=== PATIENT | female | born 1980 | race Caucasian/White ===

== ENCOUNTER 2016-12-31 18:35 | Observation (INO) | payer MEDICAID ==
[~2016-12-31] VITALS: Ht 172.7 cm; Wt 68.0 kg
[~2016-12-31 18:35] MED LIST: IBUP600 PO; PRENCAP6 PO
[2016-12-31 18:39] VITALS: BP 132/88; PULSE 68; RESP 20; TEMP 97.9; O2SAT 100
--- NOTE | 2016-12-31 19:32 | RADRPT ---
EXAM DATE/TIME: 12/31/2016 19:15 [facility] COMPARISON: No previous studies available for comparison. INDICATIONS : Chest pain. MEDICAL HISTORY : Pericardial effusion. SURGICAL HISTORY : None. ENCOUNTER: Initial ACUITY: 1 day PAIN SCORE: 5/10 LOCATION: chest FINDINGS: A single view of the chest demonstrates questionable right basilar density. Lungs otherwise clear. Th e cardiomediastinal contours are unremarkable. Osseous structures are intact. Scoliotic changes are seen. CONCLUSION: 1. Questionable right basilar density that may be related to rotation/scoliotic changes. Recommend PA and lateral views for further evaluation. Sergo Clayton MD on December 31, 2016 at 19:30 Board Certified Radiologist. This report was verified electronically.
--- NOTE | 2016-12-31 19:37 | PD ---
HPI Chief Complaint: Chest Pain Time Seen by Provider: 19:37 Travel History International Travel<30 days: No Contact w/Intl Traveler<30days: No Traveled to known affect area: No History of Present Illness HPI 36-year-old female presents to the emergency department for evaluation of intermittent chest pain that started today after she lost her doctor's office. She states she is currently being treated for a sinus infection with Augmentin. She saw her primary care doctor today, Dr. Nj, after a CT scan of the abdomen/pelvis was completed. She was instructed that she has a 10 mm thick pericardial effusion. She states this caused her to become anxious that she's been having intermittent chest pain every time she thinks about it. She states the pain is midsternal. She denies any pain at this time. She states that today, she received a injection of Rocephin and was told to stop her Augmentin and start ciprofloxacin. She is also given a prescription for ibuprofen. She has not yet changed her antibiotic. Patient denies any shortness of breath. She denies any history of IVDU. Patient denies any other medical problems or complaints at this time. PFSH Past Medical History ?: Not LMP: 12/31/16 Social History Alcohol Use: No Tobacco Use: Yes Substance Use: No Allergies-Medications (Allergen,Severity, Reaction): Coded Allergies: No Known Allergies (Unverified , 05/04/14) Reported Meds & Prescriptions Reported Meds & Active Scripts Active Motrin 600 Mg Tab (Ibuprofen) 600 Mg Tab 600 Mg PO Q6H Reported 1 ( Multivitamins) Cap 1 Cap PO DAILY Review of Systems Except as stated in HPI: all other systems reviewed are Neg Physical Exam Narrative GENERAL: Well-developed well-nourished female patient, ambulatory. Afebrile. Patient appears anxious on exam. SKIN: Warm and dry. HEAD: Normocephalic. Atraumatic. EYES: No scleral icterus. No injection or drainage. NECK: Supple, trachea midline. No JVD or lymphadenopathy. CARDIOVASCULAR: Regular rate and rhythm without murmurs, gallops, or rubs. RESPIRATORY: Breath sounds equal bilaterally. No accessory muscle use. Lungs sounds are clear to auscultation. GASTROINTESTINAL: Abdomen soft, non-tender, nondistended. MUSCULOSKELETAL: No cyanosis, or edema. BACK: Nontender without obvious deformity. No CVA tenderness. Data Data Last Documented VS Vital Signs Date Time Temp Pulse Resp B/P Pulse Ox O2 Delivery O2 Flow Rate FiO2 12/31/16 19:52 16 99 Room Air 12/31/16 19:50 78 12/31/16 18:39 97.9 132/88 Orders Electrocardiogram (12/31/16 18:49) Complete Blood Count With Diff (12/31/16 18:49) Basic Metabolic Panel (Bmp) (12/31/16 18:49) Ckmb (Isoenzyme) Profile (12/31/16 18:49) Troponin I (12/31/16 18:49) Chest, Single Ap (12/31/16 18:49) Iv Access Insert/Monitor (12/31/16 18:49) Ecg Monitoring (12/31/16 18:49) Oxygen Administration (12/31/16 18:49) Oximetry (12/31/16 18:49) Chest, Pa & Lat (12/31/16 ) Aspirin Chew (Aspirin Chew) (12/31/16 20:00) Labs Laboratory Tests Test 12/31/16 20:15 White Blood Count 7.6 TH/MM3 Red Blood Count 4.62 MIL/MM3 Hemoglobin 14.1 GM/DL Hematocrit 41.5 % Mean Corpuscular Volume 89.9 FL Mean Corpuscular Hemoglobin 30.6 PG Mean Corpuscular Hemoglobin 34.0 % Concent Red Cell Distribution Width 12.8 % Platelet Count 222 TH/MM3 Mean Platelet Volume 9.1 FL Neutrophils (%) (Auto) 63.4 % Lymphocytes (%) (Auto) 28.2 % Monocytes (%) (Auto) 5.8 % Eosinophils (%) (Auto) 2.1 % Basophils (%) (Auto) 0.5 % Neutrophils # (Auto) 4.8 TH/MM3 Lymphocytes # (Auto) 2.1 TH/MM3 Monocytes # (Auto) 0.4 TH/MM3 Eosinophils # (Auto) 0.2 TH/MM3 Basophils # (Auto) 0.0 TH/MM3 CBC Comment DIFF FINAL Differential Comment Sodium Level 140 MEQ/L Potassium Level 3.6 MEQ/L Chloride Level 108 MEQ/L Carbon Dioxide Level 23.5 MEQ/L Anion Gap 9 MEQ/L Blood Urea Nitrogen 12 MG/DL Creatinine 0.75 MG/DL Estimat Glomerular Filtration 87 ML/MIN Rate Random Glucose 82 MG/DL Calcium Level 8.5 MG/DL Total Creatine Kinase 68 U/L Troponin I LESS THAN 0.02 NG/ML MDM Medical Decision Making Medical Screen Exam Complete: Yes Emergency Medical Condition: Yes Medical Record Reviewed: Yes Differential Diagnosis Pericardial effusion versus anxiety versus acute pericarditis versus renal disease Narrative Course 36-year-old female presents to the emergency department for evaluation of intermittent chest pain after she was told she had a pericardial effusion by her primary care physician. CT scan abdomen/pelvis that was done on May 26 shows a 10 mm thick pericardial effusion and recommends echocardiogram. CBC, BMP, CK, troponin, chest x-ray ordered and pending. EKG shows sinus bradycardia , heart rate 84 with inverted T waves in V1, V2, V3. Chest x-ray showed a questionable right basilar density that may be related to rotation/scoliotic changes. Recommend PA and lateral views. This is ordered and pending. CBC shows no acute abnormality. BMP shows no acute abnormality. CK is 68. Troponin is less than 0.02. Chest x-ray PA and lateral shows no acute cardiopulmonary disease; pectus excavatum deformity. Patient will be admitted for 23 hour observation for chest pain, pericardial effusion. Patient agrees to this. Dr. Malhotra accepted admission. Diagnosis Primary Impression: Chest pain Qualified Code: R07.9 - Chest pain, unspecified type Additional Impression: Pericardial effusion Admitting Information Admitting Physician Requests: Salina Rodrigez Dec 31, 2016 19:37
[2016-12-31 19:52] VITALS: RESP 16; O2SAT 99
[2016-12-31] MEDS ORDERED: ASPIRIN 81 MG CHEW TAB CHEW ONE (20:00)
--- NOTE | 2016-12-31 20:36 | RADRPT ---
EXAM DATE/TIME: 12/31/2016 20:16 [facility] COMPARISON: CHEST SINGLE AP, December 31, 2016, 19:15. INDICATIONS : Chest pain. MEDICAL HISTORY : None. SURGICAL HISTORY : None. ENCOUNTER: Initial ACUITY: 1 day PAIN SCORE: 5/10 LOCATION: chest FINDINGS: PA and lateral views of the chest demonstrate the lungs to be symmetrically aerated without evidence of mass, infiltrate or effusion. Pectus excavatum. The cardiomediastinal contours are unremarkable. Osseous structures are intact. CONCLUSION: 1. No acute cardiopulmonary disease. 2. Pectus excavatum deformity. Sergo Clayton MD on December 31, 2016 at 20:34 Board Certified Radiologist. This report was verified electronically.
[2016-12-31 20:44] LABS: AUTOMATED NEUTROPHIL # 4.8 TH/MM3 (1.8-7.7); BASOPHIL % 0.5 % (0.0-2.0); EOSINOPHIL # 0.2 TH/MM3 (0-0.4); EOSINOPHIL % 2.1 % (0.0-4.0); HEMATOCRIT 41.5 % (35.0-46.0); HEMO FLAGS DIFF FINAL; LYMPH % 28.2 % (9.0-44.0); LYMPHOCYTE # 2.1 TH/MM3 (1.0-4.8); MEAN CELL VOLUME 89.9 FL (80.0-100.0); MEAN CORPUSCULAR HEMOGLOBIN 30.6 PG (27.0-34.0); MONO % 5.8 % (0.0-8.0); NEUT % 63.4 % (16.0-70.0); PLATELET COUNT 222 TH/MM3 (150-450); RED BLOOD COUNT 4.62 MIL/MM3 (4.00-5.30); RED CELL DISTRIBUTION WIDTH 12.8 % (11.6-17.2); WHITE BLOOD COUNT 7.6 TH/MM3 (4.0-11.0)
[2016-12-31 21:14] LABS: ANION GAP 9 MEQ/L (5-15); BICARBONATE 23.5 MEQ/L (21.0-32.0); BLOOD UREA NITROGEN 12 MG/DL (7-18); CHLORIDE 108 MEQ/L (98-107); GLOMERULAR FILTRATION RATE 87 ML/MIN (>89); POTASSIUM 3.6 MEQ/L (3.5-5.1); SODIUM (NA) 140 MEQ/L (136-145)
[2016-12-31 21:24] LABS: CREATINE KINASE 68 U/L (26-192)
[2016-12-31 22:00] VITALS: BP 138/79; PULSE 73; RESP 16; O2SAT 100
[2016-12-31] MEDS ORDERED: NALOXONE HCL 0.4 MG/ML AMP IV PRN (22:30)
[2016-12-31] MEDS ORDERED: SODIUM CHLORIDE 0.9% FLUSH 5 ML FLUSH FLUSH PRN (22:30)
[2017-01-01] VITALS (9 sets, daily range): BP systolic 93–132; BP diastolic 54–69; PULSE 60–84; RESP 14–18; TEMP 97.8–98.3; O2SAT 95–100
[2017-01-01 02:49] LABS: AUTOMATED NEUTROPHIL # 4.4 TH/MM3 (1.8-7.7); BASOPHIL % 0.7 % (0.0-2.0); EOSINOPHIL # 0.2 TH/MM3 (0-0.4); EOSINOPHIL % 3.2 % (0.0-4.0); HEMATOCRIT 41.1 % (35.0-46.0); HEMO FLAGS DIFF FINAL; LYMPH % 32.4 % (9.0-44.0); LYMPHOCYTE # 2.4 TH/MM3 (1.0-4.8); MEAN CELL VOLUME 90.1 FL (80.0-100.0); MEAN CORPUSCULAR HEMOGLOBIN 30.6 PG (27.0-34.0); MONO % 5.4 % (0.0-8.0); NEUT % 58.3 % (16.0-70.0); PLATELET COUNT 198 TH/MM3 (150-450); RED BLOOD COUNT 4.56 MIL/MM3 (4.00-5.30); RED CELL DISTRIBUTION WIDTH 12.6 % (11.6-17.2); WHITE BLOOD COUNT 7.5 TH/MM3 (4.0-11.0)
[2017-01-01 03:04] LABS: BICARBONATE 24.9 MEQ/L (21.0-32.0); POTASSIUM 3.4 MEQ/L (3.5-5.1)
[2017-01-01 03:10] LABS: CREATINE KINASE 65 U/L (26-192)
--- NOTE | 2017-01-01 06:07 | HHI.HP ---
[facility] Jagruti Villalobos MD Admission Diagnosis chest pain, pericardial effusion Diagnoses: Chief Complaint: dizziness, chest pain, fluid around heart Travel History International Travel<30 Days: No Contact w/Intl Traveler <30 Da: No Traveled to Known Affected Are: No History of Present Illness History from patient, [facility] [employer] [facility] [employer] communication, and review of medical records. Patient reported that she came to the hospital because she was having chest pains yesterday. She stated it started around 1 PM. Not necessarily associated with inspiration. However she thinks that this may be related to anxiety. she reports that she was getting anxious because she was called yesterday by her doctor's office telling her that her CT abdomen which was done as an outpatient reveals fluid around her heart. The doctor had made appointment for her with a continuous improvement coordinator to further evaluate for this pericardial effusions. She reports that with this new information, she was likely anxious. However she does not really suffer from anxiety attacks and is not on any medications at home for this previously. Patient reports of about 3 weeks history of sinus symptoms. She stated she was having congestion, ear pains, headaches. She states that she actually went to an urgent care center about a week ago. She was told that she has sinusitis and was prescribed Augmentin. Has she has been taking Augmentin since then. The CT scan was also done about a week ago, a day prior to start of her Augmentin. Patient denies any sick contacts at home. However states that her young child who goes to daycare is also now having stomach flu with diarrhea. Patient also complains of cramping in her abdomen. She states that she is having her periods at present. She however denies any prior history of endometriosis or fibroids. She states that the only other complaint she has currently is that for the past 1 month or so, she has been having occasional numbness and tingling in her left pinky toes on and off. She has mentioned this to her primary care doctor for further evaluation. She also reports of for about 1 month, she was having severe dizziness. She states that her dizziness is worse whenever she bends down. She states is also is quite bad to the point that she now is not doing her regular exercises. She usually is quite athletic and workout on a daily basis previously. She does not take any blood pressure medications. She reports a family history of thyroid issues in her sister. She denies any thyroid problems herself. However never had thyroid ultrasound. She felt some sensation in her throat. She states that her blood work for thyroid was normal about a month ago. She denies any extreme hot or cold symptoms or weight gain or weight loss. Review of Systems Except as stated in HPI: all other systems reviewed are Neg Past Family Social History Past Medical History none Past Surgical History none Reported Medications none apart from augmentin Allergies: Coded Allergies: No Known Allergies (Unverified , 05/04/14) Family History thyroid dx in sister Social History smoker- quit 1 week ago; smoked for 1 pack a day >10yrs Physical Exam Vital Signs Vital Signs Date Time Temp Pulse Resp B/P Pulse Ox O2 Delivery O2 Flow Rate FiO2 01/01/17 02:00 69 16 130/69 100 Room Air 12/31/16 22:00 73 16 138/79 100 Room Air 12/31/16 19:52 16 99 Room Air 12/31/16 19:52 99 Room Air 12/31/16 19:50 78 16 12/31/16 18:39 97.9 68 20 132/88 100 Room Air Physical Exam GENERAL: This is a well-nourished, well-developed patient, in no apparent distress. SKIN: No rashes, ecchymoses or lesions. Cool and dry. HEAD: Atraumatic. Normocephalic. No temporal or scalp tenderness. EYES: No scleral icterus. No injection or drainage. ENT: Nose without bleeding, purulent drainage or septal hematoma. . Airway patent. NECK: Trachea midline. No JVD. Supple, nontender, no meningeal signs. CARDIOVASCULAR: Regular rate and rhythm without murmurs, gallops, or rubs. RESPIRATORY: Clear to auscultation. Breath sounds equal bilaterally. No wheezes , rales, or rhonchi. GASTROINTESTINAL: Abdomen soft, non-tender, nondistended. No guarding. MUSCULOSKELETAL: Extremities without clubbing, cyanosis, or edema. No calf tenderness. NEUROLOGICAL: Awake and alert Motor and sensory grossly within normal limits. Normal speech. Laboratory Laboratory Tests Test 3/8/17 3/9/17 20:15 02:31 White Blood Count 7.6 7.5 Red Blood Count 4.62 4.56 Hemoglobin 14.1 14.0 Hematocrit 41.5 41.1 Mean Corpuscular Volume 89.9 90.1 Mean Corpuscular Hemoglobin 30.6 30.6 Mean Corpuscular Hemoglobin 34.0 34.0 Concent Red Cell Distribution Width 12.8 12.6 Platelet Count 222 198 Mean Platelet Volume 9.1 8.9 Neutrophils (%) (Auto) 63.4 58.3 Lymphocytes (%) (Auto) 28.2 32.4 Monocytes (%) (Auto) 5.8 5.4 Eosinophils (%) (Auto) 2.1 3.2 Basophils (%) (Auto) 0.5 0.7 Neutrophils # (Auto) 4.8 4.4 Lymphocytes # (Auto) 2.1 2.4 Monocytes # (Auto) 0.4 0.4 Eosinophils # (Auto) 0.2 0.2 Basophils # (Auto) 0.0 0.0 CBC Comment DIFF FINAL DIFF FINAL Differential Comment Sodium Level 140 145 Potassium Level 3.6 3.4 Chloride Level 108 110 Carbon Dioxide Level 23.5 24.9 Anion Gap 9 10 Blood Urea Nitrogen 12 11 Creatinine 0.75 0.72 Estimat Glomerular Filtration 87 91 Rate Random Glucose 82 117 Calcium Level 8.5 8.5 Total Creatine Kinase 68 65 Troponin I LESS THAN 0.02 LESS THAN 0.02 Result Diagram: 01/01/17 0231 01/01/17 0231 Imaging Last 48 hours Impressions Chest X-Ray 12/31/16 1849 Signed Impressions: Service Date/Time: Saturday, December 31, 2016 19:15 - CONCLUSION: 1. Questionable right basilar density that may be related to rotation/scoliotic changes. Recommend PA and lateral views for further evaluation. Sergo Clayton MD Chest X-Ray 12/31/16 0000 Signed Impressions: Service Date/Time: Saturday, December 31, 2016 20:16 - CONCLUSION: 1. No acute cardiopulmonary disease. 2. Pectus excavatum deformity. Sergo Clayton MD Assessment and Plan Assessment and Plan Impression: Chest painrule out ACS. Pericardial effusionlikely secondary to viral illness/pericarditis Report of lower abdominal cramping with findings on outpatient CT abdomen showing free fluid in the cul-de-sac Hypokalemia Diarrhea while in hospital Plan: Serial cardiac enzymes and EKGs. Echocardiogram in a.m. to evaluate for pericardial effusions. Would also obtain TSH and thyroid ultrasound. Patient was having upper respiratory symptoms for which she was taking Augmentin for about a week. She now developed diarrhea starting today while in hospital. We'll check for stool studies since patient's child is also having diarrhea from daycare. Also check for C. difficile since she was on antibiotics. Exam potassium was replaced. Obtain pelvic ultrasound to further evaluate for free fluid in the cul-de-sac as advised by radiologist. DVT prophylaxiswith SCD. Discussed Condition With Patient, ER physician, patient's nurse Birgit Malhotra MD Jan 01, 2017 06:07
[2017-01-01] MEDS ORDERED: ACETAMINOPHEN 325 MG TAB PO PRN (06:15)
[2017-01-01] MEDS: ONDANSETRON HCL 4 MG/2 ML VIAL IV PUSH PRN ×3 (07:10→21:36)
[2017-01-01] MEDS ORDERED: POTASSIUM CHLORIDE 20 MEQ CONTROLLED RELEASE TAB PO ONE (07:30)
--- NOTE | 2017-01-01 08:20 | HHI.PR ---
Subjective Remarks Follow up for chest pain. The patient reports continued constant chest pain substernally, reproducible with palpation. She also now feels like she has a stomach virus. She reports nausea, no vomiting, and multiple episodes of diarrhea overnight. Prior to arrival, she received IM Rocephin yesterday and has been on Augmentin for sinusitis. The patient also admits to feeling very anxious over the past month. Objective Vitals Vital Signs Date Time Temp Pulse Resp B/P Pulse Ox O2 Delivery O2 Flow Rate FiO2 01/01/17 06:21 70 14 132/66 100 Room Air 01/01/17 02:00 69 16 130/69 100 Room Air 12/31/16 22:00 73 16 138/79 100 Room Air 12/31/16 19:52 16 99 Room Air 12/31/16 19:52 99 Room Air 12/31/16 19:50 78 16 12/31/16 18:39 97.9 68 20 132/88 100 Room Air Result Diagram: 01/01/17 0231 01/01/17 0231 Imaging Last Impressions Thyroid Ultrasound 01/01/17 0000 Signed Impressions: Service Date/Time: December 09:21 - CONCLUSION: Normal examination for a patient of this age. Chuy Beck MD Pelvis Ultrasound 01/01/17 0000 Signed Impressions: Service Date/Time: December 09:13 - CONCLUSION: Normal transabdominal pelvis ultrasound. Regis Brown MD Chest X-Ray 12/31/16 1849 Signed Impressions: Service Date/Time: Saturday, December 31, 2016 19:15 - CONCLUSION: 1. Questionable right basilar density that may be related to rotation/scoliotic changes. Recommend PA and lateral views for further evaluation. Sergo Clayton MD Objective Remarks GENERAL: Well-nourished, well-developed female patient in NAD. SKIN: Warm and dry. No rash. HEAD: Normocephalic. Atraumatic. EYES: Pupils equal and round. No scleral icterus. No injection or drainage. ENT: No nasal bleeding or discharge. Mucous membranes pink and moist. NECK: Supple. Trachea midline. CARDIOVASCULAR: Regular rate and rhythm. S1, S2 noted. No murmur appreciated. Mid-anterior chest wall tenderness to palpation. RESPIRATORY: No accessory muscle use. Clear to auscultation. Breath sounds equal bilaterally. GASTROINTESTINAL: Abdomen soft, non-tender, nondistended. Normoactive bowel sounds x4. MUSCULOSKELETAL: No obvious deformities. Extremities without clubbing, cyanosis , or edema. NEUROLOGICAL: Awake and alert. No obvious cranial nerve deficits. Motor grossly within normal limits. 5/5 muscle strength in bilateral upper and lower extremities. Normal speech. PSYCHIATRIC: Anxious mood; insight and judgment normal. Medications and IVs Current Medications Medications (Trade) Dose Ordered Sig/Joseph Route Start Time Stop Time Status Last Admin (NS Flush) 2 ml UNSCH PRN FLUSH 12/31/16 22:30 (NS Flush) 2 ml BID FLUSH 01/01/17 09:00 01/01/17 09:00 (Narcan Inj) 0.4 mg UNSCH PRN IV 12/31/16 22:30 (Tylenol) 650 mg Q4H PRN PO 01/01/17 06:15 (Zofran Inj) 4 mg Q6H PRN IV PUSH 01/01/17 07:00 01/01/17 11:26 Pantoprazole Sodium 40 mg 40 mg DAILY PO 01/01/17 09:00 01/01/17 09:35 (NS 1000 ml Inj) 1,000 ml @ 100 mls/hr Q10H IV 01/01/17 08:30 01/01/17 09:36 (Lactinex) 1 tab TID PO 01/01/17 09:00 01/01/17 09:36 Urinary Catheter: No Vascular Central Line Catheter: No A/P Assessment and Plan 36-year-old female with no significant past medical history presents with chest pain Chest Pain, Atypical: reproducible with palpation and likely related to anxiety. ACS ruled out with negative serial cardiac enzymes x3 and EKG without acute ischemic changes. CXR images reviewed by me, unremarkable. Checking echo. Pericardial Effusion: seen on outpatient CT abdomen showed 10mm thick pericardial effusion. ESR wnl. Check Echo. Abdominal Pain/Diarrhea: suspect Gastroenteritis related to recent abx use. Outpatient abdominal CT report reviewed, showed free fluid in the cul-de-sac, otherwise no acute intraabdominal findings. Pelvic U/S unremarkable. Check stool for cdiff and cultures. Supportive treatment with IVF, antiemetics. Start Protonix and Lactinex. Anxiety: continue patient's hydroxyzine prn. Elevated TSH: minimally elevated at 3.86. Check T3 and free T4. Thyroid U/S unremarkable. Hypokalemia: K 3.4, likely secondary to diarrhea. Replaced with po KCl. Repeat labs tomorrow. DVT Prophylaxis: SCDs Written by Lara Spain, acting as scribe for Dr. Figueroa on 01/01/17 at 08:18. All or portions of this note were transcribed by scribe []. I, Dr. Armani Figueroa personally performed the history, physical exam, and medical decision making; and confirmed the accuracy of the information in the transcribed note. Authenticated by Dr. Armani Figueroa on 01/01/17 at 14:42. Lara Spain PA-C Jan 01, 2017 08:19 Armani Figueroa MD Jan 01, 2017 14:42
[2017-01-01] MEDS: SODIUM CHLORIDE 0.9% FLUSH 5 ML FLUSH FLUSH SCH ×2 (09:00→21:34)
[2017-01-01 09:12] LABS: CREATINE KINASE 65 U/L (26-192)
[2017-01-01] MEDS: PANTOPRAZOLE SOD 40 MG DELAYED RELEASE TAB PO SCH (09:35)
[2017-01-01] MEDS: LACTOBACILLUS ACIDOPHILUS TAB PO SCH ×3 (09:36→17:50)
[2017-01-01] MEDS: SODIUM CHLOR 0.9% 1000 ML INJ 1,000 ML IV SCH (09:36)
--- NOTE | 2017-01-01 10:14 | RADRPT ---
EXAM DATE/TIME: 01/01/2017 09:13 [facility] COMPARISON: No previous studies available for comparison. INDICATIONS : Abnormal outside CT. MEDICAL HISTORY : Pericardial effusion. SURGICAL HISTORY : None. ENCOUNTER: Initial ACUITY: 1 day PAIN SCORE: 0/10 LOCATION: Bilateral pelvis MEASUREMENTS: UTERUS: 8.6 x 4.9 x 5.6 cm ENDOMETRIAL STRIPE: 8 mm RIGHT OVARY: 3.5 x 1.6 x 2.1 cm LEFT OVARY: 3.4 x 1.9 x 2.1 cm FINDINGS: UTERUS: The myometrium has homogeneous echotexture without mass. RIGHT OVARY: Ovary contains no mass or significant cystic lesion. Normal blood flow is documented. LEFT OVARY: Ovary contains no mass or significant cystic lesion. Normal blood flow is documented. MISCELLANEOUS: No free fluid. Urinary bladder is only mildly distended. A tampon is present within the vagina. CONCLUSION: Normal transabdominal pelvis ultrasound. Regis Brown MD on January 01, 2017 at 10:11 Board Certified Radiologist. This report was verified electronically.
--- NOTE | 2017-01-01 10:22 | RADRPT ---
EXAM DATE/TIME: 01/01/2017 09:21 [facility] COMPARISON: No previous studies available for comparison. INDICATIONS : Enlarged thyroid. MEDICAL HISTORY : Pericardial effusion. SURGICAL HISTORY : None. ENCOUNTER: Initial ACUITY: 1 day PAIN SCORE: 0/10 LOCATION: Bilateral neck MEASUREMENTS: RIGHT LOBE: 5.0 x 1.4 x 1.1 cm LEFT LOBE: 5.1 x 1.4 x 1.6 cm FINDINGS: RIGHT LOBE: Homogeneous echotexture without nodules or cysts. Vascularity is within normal limits. LEFT LOBE: Homogeneous echotexture without nodules or cysts. Vascularity is within normal limits. ISTHMUS: Normal in size without focal abnormality. CONCLUSION: Normal examination for a patient of this age. Chuy Beck MD on January 01, 2017 at 10:20 Board Certified Radiologist. This report was verified electronically.
--- NOTE | 2017-01-01 10:45 | EKG ---
Date Performed: 01/01/2017 Time Performed: 03:07:34 PTAGE: 36 years EKG: SINUS BRADYCARDIA POSSIBLE RIGHT VENTRICULAR CONDUCTION DELAY BORDERLINE ECG PREVIOUS TRACING : 12/31/2016 18.58 Compared to prior tracing no significant change DOCTOR: Geovanny Davison Interpretating Date/Time 01/01/2017 10:43:17
--- NOTE | 2017-01-01 12:24 | EC ---
Study Study Date:01/01/2017 STUDY CONCLUSIONS SUMMARY - Left ventricle: The cavity size was normal. Wall thickness was normal. Systolic function was normal. The estimated ejection fraction was in the range of 55% to 60%. Wall motion was normal; there were no regional wall motion abnormalities. - Aortic valve: Valve area: 2.29cm^2 (Vmax). - Tricuspid valve: Mild regurgitation. - Pericardium, extracardiac: A small, partially loculated pericardial effusion was identified circumferential to the heart. There was no evidence of hemodynamic compromise. If LV function is below 40, please consider prescribing an ACEI or ARB or document rationale for non-use. PROCEDURE DATA STUDY STATUS: Elective. Procedure: Transthoracic echocardiography. Image quality was good. Scanning was performed from the parasternal, apical, and subcostal acoustic windows. Study completion: The patient tolerated the procedure well. Transthoracic echocardiography. M-mode, complete 2D, complete spectral Doppler, and color Doppler. Height: Height: 68in. Weight: Weight: 148.7lb. Body mass index: BMI: 22.7kg/m^2. Body surface area: BSA: 1.8m^2. Patient status: Inpatient. CARDIAC ANATOMY LEFT VENTRICLE: The cavity size was normal. Wall thickness was normal. Systolic function was normal. The estimated ejection fraction was in the range of 55% to 60%. Wall motion was normal; there were no regional wall motion abnormalities. AORTIC VALVE: Trileaflet; normal thickness leaflets. Doppler: Transvalvular velocity was within the normal range. There was no stenosis. No regurgitation. Valve area: 2.29cm^2 (Vmax). Indexed valve area: 1.27cm^2/m^2 (Vmax). AORTA: Aortic root: The aortic root was normal in size. MITRAL VALVE: Structurally normal valve. Doppler: Transvalvular velocity was within the normal range. There was no evidence for stenosis. No regurgitation. Peak gradient: 2mm Hg (D). LEFT ATRIUM: The atrium was normal in size. RIGHT VENTRICLE: The cavity size was normal. Wall thickness was normal. PULMONIC VALVE: Doppler: Transvalvular velocity was within the normal range. There was no evidence for stenosis. No regurgitation. TRICUSPID VALVE: Structurally normal valve. Doppler: Transvalvular velocity was within the normal range. Mild regurgitation. PULMONARY ARTERY: The main pulmonary artery was normal-sized. Systolic pressure was within the normal range. RIGHT ATRIUM: The atrium was normal in size. PERICARDIUM: A small, partially loculated pericardial effusion was identified circumferential to the heart. There was no evidence of hemodynamic compromise. SYSTEMIC VEINS: Inferior vena cava: The vessel was normal in size. Patient weight: 148.7lb _Ejection fraction:_ 65-75% _Fractional shortening:_ 32% up to 5Kg 5-11.5Kg 11.6-22.9Kg 23-45Kg 45-57Kg Aortic Root 7-13 <17 13-22 17-27 17-27 LA diam 6-13 <23 24-38 33-47 37-40 RVID 10-17 7-15 7-15 7-18 8-17 LVIDd 12-22 <32 24-38 33-47 37-40 LVPW 2-4 3-6 5-7 6-8 7-8 IVS 2-4 3-6 5-7 6-8 7-8 BASIC MEASUREMENTS ADULT NORMAL Left ventricle LV internal dimension, ED, chordal 44 mm 43-52 level, PLAX LV internal dimension, ES, chordal 30.8 mm 23-38 level, PLAX Fractional shortening, chordal level, 30 % >29 PLAX LV posterior wall thickness, ED 9.37 mm IVS/LVPW ratio, ED 1.02 <1.3 Ventricular septum Septal thickness, ED 9.6 mm Aortic valve Leaflet separation 20 mm 15-26 BASIC MEASUREMENTS ADULT NORMAL Aortic valve Leaflet separation 20 mm 15-26 Aorta Root diameter, ED 22 mm 20-37 Left atrium Anterior-posterior dimension, ES 25 mm 19-40 Anterior-posterior dimension index, ES 1.39 cm/m^2 <2.2 LA/aortic root ratio 1.14 DOPPLER MEASUREMENTS ADULT NORMAL Main pulmonary artery Pressure, S 18 mm Hg =30 Aortic valve Peak velocity, S 99.1 cm/s Valve area, Vmax 2.29 cm^2 Valve area index, Vmax 1.27 cm^2/m^2 Mitral valve Peak E-wave velocity 73.1 cm/s Peak A-wave velocity 37 cm/s Deceleration time 173 ms 150-230 Peak gradient, D 2 mm Hg Peak E/A ratio 2 Tricuspid valve Regurgitant peak velocity 147 cm/s Peak RV-RA gradient, S 9 mm Hg Maximal regurgitant velocity 147 cm/s Systemic veins Estimated CVP 10 mm Hg Right ventricle RV pressure, S 21 mm Hg <30 Pulmonic valve Peak velocity, S 92.3 cm/s LEGEND: Mean values are shown as u=mean value. Asterisk (*) zapata values outside specified normal range. Prepared and signed by Seven Epperson [id number]
[2017-01-01 13:12] LABS: FREE T3 2.94 PG/ML (2.18-3.98); FREE T4 1.24 NG/DL (0.76-1.46)
--- NOTE | 2017-01-01 13:37 | EKG ---
Date Performed: 12/31/2016 Time Performed: 18:58:33 PTAGE: 36 years EKG: SINUS BRADYCARDIA POSSIBLE LEFT ATRIAL ENLARGEMENT INCOMPLETE RIGHT BUNDLE BRANCH BLOCK BOR DERLINE ECG NO PREVIOUS TRACING DOCTOR: Geovanny Davison Interpretating Date/Time 01/01/2017 13:36:06
[2017-01-01] MEDS ORDERED: hydrOXYzine HCL 25 MG TAB PO PRN (14:00)
[2017-01-01] MEDS ORDERED: AMOXICILLIN/CLAVULANATE K 875 MG TAB PO SCH (14:45)
[2017-01-01] MEDS ORDERED: AUGM875T PO (15:13)
[2017-01-01] MEDS ORDERED: CIPR750T2 PO (16:15)
[2017-01-01] MEDS: AMPICILLIN-SULBACTAM INJ 1,500 MG in SODIUM CHLORIDE 0.9% INJ 100 ML IV SCH ×2 (17:51→23:24)
[2017-01-01 18:13] LABS: C. DIFF EPI 027 PRESUMPTIVE NEGATIVE (NEGATIVE); C. DIFF TOXIN PCR NEGATIVE (NEGATIVE)
[2017-01-02 00:31] VITALS: BP 107/61; PULSE 78; RESP 18; TEMP 98.8; O2SAT 97
[2017-01-02] MEDS: SODIUM CHLOR 0.9% 1000 ML INJ 1,000 ML IV SCH (04:26)
[2017-01-02 05:04] VITALS: BP 109/60; PULSE 61; RESP 21; TEMP 98.7; O2SAT 98
[2017-01-02] MEDS: AMPICILLIN-SULBACTAM INJ 1,500 MG in SODIUM CHLORIDE 0.9% INJ 100 ML IV SCH ×2 (06:01→12:07)
[2017-01-02 08:07] VITALS: BP 92/50; PULSE 50; PULSE 56; RESP 18; TEMP 96.8; O2SAT 95
[2017-01-02 08:09] LABS: POTASSIUM 3.9 MEQ/L (3.5-5.1)
[2017-01-02] MEDS: LACTOBACILLUS ACIDOPHILUS TAB PO SCH ×2 (08:22→12:06)
[2017-01-02] MEDS: PANTOPRAZOLE SOD 40 MG DELAYED RELEASE TAB PO SCH (08:22)
[2017-01-02] MEDS: SODIUM CHLORIDE 0.9% FLUSH 5 ML FLUSH FLUSH SCH (08:22)
[2017-01-02] MEDS ORDERED: DIPHENOXYLATE/ATROPINE 2.5 MG/0.025 MG TAB PO PRN (09:15)
[2017-01-02] MEDS ORDERED: DIPHENOXYLATE/ATROPINE 2.5 MG/0.025 MG TAB PO ONE (09:15)
--- NOTE | 2017-01-02 10:48 | HHI.PR ---
Subjective Remarks Follow-up for chest pain, sinusitis, diarrhea. Patient's mother at bedside. The patient had reported 20 episodes of loose stools yesterday. She states diarrhea frequency seemed to improve overnight, but has had an episode of loose stools today. She states her son has had a stomach virus. She has been tolerating oral pills. She was recently prescribed antibiotics for sinusitis by her PCP, took only one dose on Thursday prior to hospitalization. She denies any chest pain. Wants to go home if possible. Objective Vitals Vital Signs Date Time Temp Pulse Resp B/P Pulse Ox O2 Delivery O2 Flow Rate FiO2 01/02/17 08:07 56 01/02/17 08:07 96.8 50 18 92/50 95 01/02/17 05:04 98.7 61 21 109/60 98 01/02/17 00:31 98.8 78 18 107/61 97 01/01/17 20:00 84 01/01/17 19:36 97.8 66 18 93/54 98 01/01/17 18:36 98.3 67 18 98/55 95 01/01/17 13:15 98.1 63 18 109/60 95 01/01/17 13:11 01/01/17 12:28 100 Room Air 01/01/17 11:29 60 16 110/59 100 Room Air I/O 01/01/17 01/01/17 01/01/17 01/02/17 01/02/17 01/02/17 07:00 15:00 23:00 07:00 15:00 23:00 Intake Total 450 ml 480 ml 400 ml Balance 450 ml 480 ml 400 ml Intake Oral 150 ml 480 ml 200 ml IV Total 300 ml 200 ml # Voids 2 4 1 # Bowel Movements 4 0 Result Diagram: 01/01/17 0231 01/02/17 0605 Imaging Last Impressions Thyroid Ultrasound 01/01/17 0000 Signed Impressions: Service Date/Time: December 09:21 - CONCLUSION: Normal examination for a patient of this age. Chuy Beck MD Pelvis Ultrasound 01/01/17 0000 Signed Impressions: Service Date/Time: December 09:13 - CONCLUSION: Normal transabdominal pelvis ultrasound. Regis Brown MD Chest X-Ray 3/06/11 1849 Signed Impressions: Service Date/Time: Saturday, December 31, 2016 19:15 - CONCLUSION: 1. Questionable right basilar density that may be related to rotation/scoliotic changes. Recommend PA and lateral views for further evaluation. Sergo Clayton MD Objective Remarks GENERAL: Well-developed well-nourished. In no acute distress. SKIN: Warm and dry. No lesions noted. HEENT: Normocephalic. Pupils equal and round. Mucous membranes pink and moist. CARDIOVASCULAR: Regular rate and rhythm. No murmur appreciated. RESPIRATORY: No accessory muscle use. Clear to auscultation. Breath sounds equal bilaterally. GASTROINTESTINAL: Abdomen soft, non-tender, nondistended. Bowel sounds x4. MUSCULOSKELETAL: No obvious deformities. No clubbing or cyanosis. No edema. NEUROLOGICAL: Awake and alert. No focal neurological deficits. Moves upper and lower extremities spontaneously. Normal speech. PSYCHIATRIC: Slightly anxious mood and affect; insight and judgment normal. A/P Assessment and Plan 36-year-old female with no significant past medical history presents with chest pain Chest Pain, Atypical: reproducible with palpation and likely related to anxiety. ACS ruled out with negative serial cardiac enzymes x3 and EKG without acute ischemic changes. CXR unremarkable. Echocardiogram as below. No further pain. Pericardial Effusion: seen on outpatient CT abdomen showed 10mm thick pericardial effusion. ESR wnl. Echocardiogram showed a small partially loculated pericardial effusion with no evidence of hemodynamic compromise. Possibly viral. Continue outpatient cardiology follow-up. Abdominal Pain/Diarrhea: suspect viral gastroenteritis vs antibiotic associated diarrhea. Outpatient abdominal CT report showed free fluid in the cul-de-sac, otherwise no acute intraabdominal findings. Pelvic U/S unremarkable. C. difficile negative. Stool cultures negative to date. Renal function is good, DC IVF, encouraged oral intake. Antiemetics. Antidiarrheals with Lactinex and Lomotil. Protonix. Anxiety: continue patient's hydroxyzine prn. Elevated TSH: minimally elevated at 3.86. T3 and free T4 within normal limits. Thyroid U/S unremarkable. Hypokalemia: K 3.4, likely secondary to diarrhea. Replaced with po KCl, potassium 3.9. Resolved. Sinusitis: Diagnosed by patient's PCP and started on Augmentin. On IV Unasyn here until patient can better tolerate oral medications and then resume Augmentin course. DVT Prophylaxis: SCDs Written by Tejinder Pedraza, acting as scribe for Dr. Figueroa on 01/02/17 at 10:44. All or portions of this note were transcribed by scribe []. I, Dr. Armani Figueroa personally performed the history, physical exam, and medical decision making; and confirmed the accuracy of the information in the transcribed note. Authenticated by Dr. Armani Figueroa on 01/02/17 at 15:02. Discharge Planning Discharge planning later today if diarrhea continues to improve and patient can maintain oral hydration. Tejinder Pedraza Jan 02, 2017 10:48 Armani Figueroa MD Jan 02, 2017 15:02
[2017-01-02 11:49] VITALS: BP 105/65; PULSE 66; RESP 18; O2SAT 93
[2017-01-02] MEDS ORDERED: PANT40TA3 PO (15:18)
[2017-01-02] MEDS ORDERED: LACT PO (15:20)
[2017-01-02] MEDS ORDERED: DIPH2.5T14 PO (15:38)
--- NOTE | 2017-01-02 20:31 | EKG ---
Date Performed: 01/01/2017 Time Performed: 07:40:26 PTAGE: 36 years EKG: SINUS BRADYCARDIA LOW QRS VOLTAGE IN PRECORDIAL LEADS POSSIBLE RIGHT VENTRICULAR CONDUCTION DELAY BORDERLINE ECG PREVIOUS TRACING : 01/01/2017 03.07 Compared to prior tracing no significant change DOCTOR: Dung Palma Interpretating Date/Time 01/02/2017 20:29:31
== END 2017-01-02 16:31 | disposition home or self-care (01) ==
LOC: NEPE 18:35 → NEDA 22:01 → NEDH 01-01 03:13 → NEPHCDU 01-01 12:52
PROVIDERS: ADMIT Internal Medicine; ATTEND Internal Medicine
DX: R07.89 Other chest pain (principal); I31.3 Pericardial effusion (noninflammatory); E87.6 Hypokalemia; R19.7 Diarrhea, unspecified; R10.9 Unspecified abdominal pain; F41.9 Anxiety disorder, unspecified; R94.6 Abnormal results of thyroid function studies; J32.9 Chronic sinusitis, unspecified; Z87.891 Personal history of nicotine dependence
CPT/HCPCS: 71010; 71020; 76536; 76856; 80048; 82550; 83735; 84439; 84443; 84481; 84484; 85025; 85652; 87329; 87425; 87493; 93005; 93306; 99285; G0378; J0295; J2405; J7030; J2310